=== PATIENT | male | born 1930 | race Caucasian/White ===

== ENCOUNTER 2019-07-24 11:19 | Emergency (ER) | payer OTHER, MEDICARE ==
[~2019-07-24] VITALS: Ht 177.8 cm; Wt 108.9 kg
[~2019-07-24 11:19] MED LIST: ACET500; AMIO200 PO; Adult Low Dose81 MG PO; CARV6.25 PO; CIPR500 PO; CLOP75; Carvedilol12.5 MG PO; Coreg6.25 MG PO; Coumadin4 MG PO; Depo-Testo100 MG/1 M IM; FIBE4P PO; Flonase 0.05% N16 GM; IBUP800; LAVAP17G PO; LEVSOD100; LEVSOD100 PO; LEVSOD125 PO; LIDO5TP TOP; LORA10; LORA10 PO; LOSA50 PO; METO50; Milk Of Ma800 MG/5 M PO; NAPR250 PO; NITR.4SL MM; Non-Aspirin Ex500 MG PO; OMEP20ER; OMEP20ER PO; OXYACE5T PO; PIRO20; PROBIOTIC1 EAC1 PO; PSYL5.85P PO; SIMV40; SULTRIDS PO; TELM80; TERA5; TESTOSTERONE; TRIHYD253A; Terazosin HCl10 MG PO; WARF5; WARF5 PO; metronidazole 500 mg PO
[2019-07-24] MEDS ORDERED: Percocet 5-3251 EACH PO (14:11)
[2019-07-24] MEDS ORDERED: CYCL10 PO (14:11)
== END 2019-07-24 14:54 | disposition home or self-care (01) ==
LOC: ER 11:19
DX: S32.019A Unspecified fracture of first lumbar vertebra, initial encounter for closed fracture (principal); Z79.899 Other long term (current) drug therapy; I10 Essential (primary) hypertension; Z95.0 Presence of cardiac pacemaker; Z79.01 Long term (current) use of anticoagulants; V89.2XXA Person injured in unspecified motor-vehicle accident, traffic, initial encounter
CPT/HCPCS: 70450; 72125; 72128; 72131; 96372; 99284-25; A9270-GY; J1885

== ENCOUNTER → 2019-08-03 | Outpatient (CLI) | payer MEDICARE, OTHER ==
[~2019-08-03] MED LIST changes: +CYCL10 PO; +Percocet 5-3251 EACH PO
[2019-08-03 19:09] LABS: Bilirubin, Urine Neg (Neg); Blood, Urine Neg (Neg); Glucose Qualitative, Urine Neg (Neg); Ketones, Urine Neg (Neg); Leukocyte Esterase, Urine 1+ (Neg); Nitrite, Urine Pos (Neg); Protein, Urine Neg (Neg); Urobilinogen, Urine NORM (Normal)
[2019-08-03 19:19] LABS: Appearance, Urine Clear (Clear); Bacteria Many /hpf; Color, Urine Yellow (P-Yellow); Red Blood Cells, Urine 0-2 /hpf (0-2); Squamous Epithelial Cells Not Seen /hpf (Few)
== END ==
LOC: LAB SHORT 17:17 → LAB 17:17
PROVIDERS: Registered Nurse
DX: R35.0 Frequency of micturition (principal); R31.9 Hematuria, unspecified
CPT/HCPCS: 81001; 87077; 87086; 87186

== ENCOUNTER → 2019-08-16 | Outpatient (CLI) | payer MEDICARE, OTHER ==
[2019-08-16 16:50] LABS: Source, Urine Clean Catch
[2019-08-16 17:22] LABS: Bilirubin, Urine Neg (Neg); Blood, Urine 1+ (Neg); Glucose Qualitative, Urine Neg (Neg); Ketones, Urine Neg (Neg); Leukocyte Esterase, Urine 3+ (Neg); Nitrite, Urine Pos (Neg); Protein, Urine Neg (Neg); Specific Gravity, Urine 1.015 (1.003-1.022); Urobilinogen, Urine NORM (Normal)
[2019-08-16 17:28] LABS: Appearance, Urine Hazy (Clear); Color, Urine Yellow (P-Yellow)
[2019-08-16 17:29] LABS: Bacteria Many /hpf; Squamous Epithelial Cells Few /hpf (Few); White Blood Cells, Urine TNTC /hpf (0-5)
== END | disposition home or self-care (01) ==
LOC: LAB SHORT 16:49 → OLS 16:49 → LAB FUT 08-10 16:30
PROVIDERS: Urology
DX: N39.0 Urinary tract infection, site not specified (principal)
CPT/HCPCS: 81001; 87077; 87086; 87186

== ENCOUNTER → 2020-09-01 | Outpatient (CLI) | payer MEDICARE, OTHER ==
[~2020-09-01] MED LIST changes: +ALLOPURINOL100 M1 PO; +ATOR10 PO; +Acetaminophen650 M1 PO; +DEPO-TESTO200 MG/1 M IM; -Depo-Testo100 MG/1 M IM; +EUTHYROX175 MCG PO; +HYDR1TAB94 PO; -LEVSOD100 PO; +LIDO700A20 TOP; +Magnesium250 MG PO; +POTASSIUM GLUCO99 M1 PO; +WARF2.5 PO
[2020-09-01 16:45] LABS: Source, Urine Clean Catch
[2020-09-01 18:46] LABS: Appearance, Urine Hazy (Clear); Bilirubin, Urine Neg (Neg); Blood, Urine Neg (Neg); Color, Urine Yellow (P-Yellow); Glucose Qualitative, Urine Neg (Neg); Ketones, Urine Neg (Neg); Leukocyte Esterase, Urine 2+ (Neg); Nitrite, Urine Pos (Neg); Protein, Urine Neg (Neg); Specific Gravity, Urine 1.015 (1.003-1.022); Urobilinogen, Urine NORM (Normal)
[2020-09-01 18:58] LABS: Red Blood Cells, Urine Not Seen /hpf (0-2)
[2020-09-01 18:59] LABS: Bacteria Many /hpf; Mucus Light (0-Heavy); Squamous Epithelial Cells Not Seen /hpf (Few)
== END | disposition home or self-care (01) ==
LOC: LAB 16:44 → LAB SHORT 16:44 → LAB FUT 08-14 08:40
PROVIDERS: Registered Nurse
DX: E79.0 Hyperuricemia without signs of inflammatory arthritis and tophaceous disease (principal)
CPT/HCPCS: 81001; 87077; 87086; 87186

== ENCOUNTER 2021-02-20 10:33 | Inpatient (IN) | payer OTHER, MEDICARE ==
[~2021-02-20] VITALS: Ht 177.8 cm; Wt 105.0 kg
[~2021-02-20 10:33] MED LIST changes: -ALLOPURINOL100 M1 PO; -ATOR10 PO; -Acetaminophen650 M1 PO; -Carvedilol12.5 MG PO; -DEPO-TESTO200 MG/1 M IM; -EUTHYROX175 MCG PO; -HYDR1TAB94 PO; -LIDO700A20 TOP; -Magnesium250 MG PO; -OMEP20ER PO; -POTASSIUM GLUCO99 M1 PO; -Terazosin HCl10 MG PO; -WARF2.5 PO
[2021-02-20 12:07] LABS: BASOPHILS ABSOLUTE AUTO 0.03 K/mm3 (0.00-0.23); BASOPHILS PERCENT AUTO 1 % (0-2); EOSINOPHILS ABSOLUTE AUTO 0.04 K/mm3 (0.00-0.68); EOSINOPHILS PERCENT AUTO 1 % (0-6); Hematocrit 46.6 % (37.0-53.0); Hemoglobin 15.4 g/dL (13.5-17.5); IMMATURE GRAN ABSOLUTE AUTO 0.02 K/mm3 (0.00-0.10); IMMATURE GRAN PERCENT AUTO 0 % (0-1); LYMPHOCYTES ABSOLUTE AUTO 1.62 K/mm3 (0.84-5.20); LYMPHOCYTES PERCENT AUTO 27 % (21-46); MONOCYTES ABSOLUTE AUTO 0.59 K/mm3 (0.16-1.47); MONOCYTES PERCENT AUTO 10 % (4-13); Mean Corpuscular HGB 31.7 pg (26.0-34.0); Mean Corpuscular Volume 96 fL (80-100); NEUTROPHILS ABSOLUTE AUTO 3.72 K/mm3 (1.96-9.15); NEUTROPHILS PERCENT AUTO 62 % (41-73); Platelet Count 143 K/mm3 (150-400); RDW Coefficient Variation 16.2 % (11.7-14.2); RDW Standard Deviation 58.2 fL (35.1-46.3); Red Blood Cell Count 4.86 M/mm3 (4.30-5.90); White Blood Cell Count 6.02 K/mm3 (4.00-11.30)
[2021-02-20 12:14] LABS: International Normalized Ratio 2.12; Prothrombin Time Results 21.9 Sec (9.7-11.5)
[2021-02-20 12:19] LABS: Alanine Aminotransfer (ALT/SGP 43 U/L (12-78); Albumin, Blood 3.4 g/dL (3.4-5.0); Albumin/Globulin Ratio 0.9 (0.8-1.8); Alk Phos 96 U/L (50-136); Anion Gap 6 mmol/L (6-16); Aspartate Aminotrans (AST/SGOT 42 U/L (12-37); Bilirubin, Total 1.6 mg/dL (0.1-1.0); Blood Urea Nitrogen 24 mg/dL (8-24); Bun/Creatinine Ratio 22.2 (12.0-20.0); CO2, Blood 25 mmol/L (21-32); Calcium, Blood 8.8 mg/dL (8.5-10.1); Chloride, Blood 108 mmol/L (98-108); Creatinine, Blood 1.08 mg/dL (0.60-1.20); Globulin, Blood 3.6 g/dL (2.2-4.0); Glomerular Filtration Rate >60 (60-); Glucose, Blood 93 mg/dL (70-99); Potassium, Blood 4.4 mmol/L (3.5-5.5); Sodium, Blood 139 mmol/L (136-145); Troponin I <0.015 ng/mL (0.000-0.040)
[2021-02-20] MEDS ORDERED: ALLOPURINOL100 M1 PO (12:25)
[2021-02-20] MEDS ORDERED: Carvedilol12.5 MG PO (12:25)
[2021-02-20] MEDS ORDERED: Terazosin HCl10 MG PO (12:26)
[2021-02-20] MEDS ORDERED: ATOR10 PO (12:26)
[2021-02-20] MEDS ORDERED: OMEP20ER PO (12:27)
[2021-02-20] MEDS ORDERED: EUTHYROX175 MCG PO (12:28)
[2021-02-20] MEDS ORDERED: DEPO-TESTO200 MG/1 M IM (12:28)
[2021-02-20] MEDS ORDERED: WARF5 PO (13:10)
[2021-02-20] MEDS ORDERED: WARF2.5 PO (13:11)
[2021-02-20] MEDS ORDERED: LIDO700A20 TOP (13:13)
[2021-02-20] MEDS ORDERED: Flonase 0.05% N16 GM (13:13)
[2021-02-20] MEDS ORDERED: POTASSIUM GLUCO99 M1 PO (13:14)
[2021-02-20] MEDS ORDERED: Magnesium250 MG PO (13:15)
--- NOTE | 2021-02-20 16:39 | NUR ---
PATIENT OFF THE CATHLAB TABLE AND TO A STRETCHER. HELD IN HEART CENTER RECOVERY UNTIL ICU BED READY. PLACED ON THE MONITOR. PACED RHYTHM NOTED. CALL LIGHT IN REACHSR Kline 2, RN AT THE BEDSIDE. LONG DESTINATION SHEATH IN PLACE TO THE LFA. PENDING ORDER FOR TPA GTT TO THE SHEATH PORT. AWAITING PHARMACY TO PREPARE. NO PAIN NOTED FROM THE PATIENT. UNABLE TO OBTAIN DOPPLER PULSE TO THE RIGHT FOOT. TOES ARE WHITE BUT JUST BELOW THE TOES THE SKIN BECOMES PURPLE/RED AND BLANCHES.
--- NOTE | 2021-02-20 19:22 | NUR ---
PT ADMIT TO ICU AT 1710. TRANSFERRED WITH SLIDE SHEET. RIGHT LOWER EXTREMITY REVASC. LEFT GROIN SIGHT WITH SHEATH IN PLACE. NO SIGNS OF BLEEDING OR HEMATOMA. SIGHT REMAINS SOFT AND NON TENDER. TPA INFUSING AT SHEATH/LEFT GROIN SITE. PATIENT LAYING FLAT AND EDUCATED ON POST REVASC RESTRICTIONS. TPA TO INFUSE OVER 15 HOURS. SEE ORDERS. HEPARIN INFUSING. RIGHT LOWER EXTREMITY PINK IN COLOR AND WARM TO TOUCH. PATIENT STATES NUMBNESS IS DECREASING. RIGHT PEDAL PULSE ABSENT, HEART CENTER NURSE AND DR. MCNULTY AWARE. LEFT PEDAL PULSE FAINT. BOWEL TONES HEARD. LUNGS SOUNDING CLEAR. PT STATES URINARY RETENTION AND THAT HE SELF CATHS HIMSELF EVERY NIGHT. ORDERS FOR AGARWAL PLACED. WEARS CPAP AT NIGHT. CALL LIGHT IN REACH. REPORTED OFF TO ONCOMING RN.
[2021-02-21 04:08] LABS: Hematocrit 43.1 % (37.0-53.0); Hemoglobin 14.3 g/dL (13.5-17.5); Mean Corpuscular HGB 31.8 pg (26.0-34.0); Mean Corpuscular HGB Conc 33.2 g/dL (31.5-36.5); Mean Corpuscular Volume 96 fL (80-100); Mean Platelet Volume 10.8 fL (9.1-12.4); Platelet Count 110 K/mm3 (150-400); RDW Coefficient Variation 16.4 % (11.7-14.2); RDW Standard Deviation 58.3 fL (35.1-46.3); Red Blood Cell Count 4.49 M/mm3 (4.30-5.90)
[2021-02-21 04:20] LABS: International Normalized Ratio 2.02
[2021-02-21 04:29] LABS: Anion Gap 6 mmol/L (6-16); Blood Urea Nitrogen 22 mg/dL (8-24); Bun/Creatinine Ratio 22.8 (12.0-20.0); CO2, Blood 25 mmol/L (21-32); Calcium, Blood 8.2 mg/dL (8.5-10.1); Chloride, Blood 109 mmol/L (98-108); Creatinine, Blood 0.96 mg/dL (0.60-1.20); Glomerular Filtration Rate >60 (60-); Glucose, Blood 79 mg/dL (70-99); Potassium, Blood 4.1 mmol/L (3.5-5.5); Sodium, Blood 140 mmol/L (136-145)
--- NOTE | 2021-02-21 06:37 | NUR ---
END OF SHIFT SUMMMARY: PATIENT A/O X4 AND IS VERY PLEASANT TO TAKE CARE OF. L FEM SITE HAS LOOKED GREAT ALL NIGHT: NO EVIDENVE OF BLEEDING/HEMATOMA/OR MAJOR DISCOMFORT. PATIENT ONLY C/O PAIN IN R LEG AND HIS CHRONIC BACK PAIN FROM LAYING FLAT FOR SO LONG. HEAT APPLIED TO LUMBAR REGION AND FENTANYL GIVEN MULTIPLE TIMES OVERNIGHT WHEN PATIENT REQUESTS. ORDERS TO LAY FLAT UNTIL ABOUT 0820 AND THEN MCGLADE TO RE-EVALUATE TODAY.
--- NOTE | 2021-02-21 08:23 | NUR ---
CALL TO DR MCNULTY REGARDING ORDERS FOR PT. INSTRUCTS TO STOP TPA AND HEPARIN AND WAIT 1 HOUR AND DC SHEATH. FLEET MAINTENANCE FOREMAN CALLED HEART CENTER STAFF TO REMOVE SHEATH IN 1 HOUR. ORDERS ORAL ANTICOAGULANTS AND STATES FROM HIS STAND POINT, OK TO DC AND TO BE SEEN IN OFFICE ON TUESDAY. FLEET MAINTENANCE FOREMAN AWARE, AWAITING HOSPITALIST
--- NOTE | 2021-02-21 09:25 | NUR ---
HEART CENTER TECH AT BEDSIDE TO REMOVE SHEATH AT THIS TIME.
--- NOTE | 2021-02-21 12:35 | NUR ---
DR DURON CAME TO SEE PT AND STATES SHE WILL BE WRITING DC ORDERS. PT INSTRUCTED THAT HE IS NOT ABLE TO DRIVE HIMSELF HOME BECAUSE HE IS NOT 24 HOURS OUT FROM THE PROCEDURE. PT CURRENTLY SITTING UP IN BED AND WILL GET HIM OUT OF BED AND SITTING IN A CHAIR SHORTLY
[2021-02-21] MEDS ORDERED: Acetaminophen650 M1 PO (13:46)
--- NOTE | 2021-02-21 13:55 | NUR ---
PT SITTING UP IN CHAIR WITH ASSISTANCE FROM [employer] ASSISTANT PRINCIPAL. ELEVATED RIGHT FOOT DUE TO INCREASED PURPLE COLOR TO TOES WITH IMPROVEMENT. PT ASKED IF HE COULD GO TO TOILET AND PHYSICAL THERAPIST ASSISTED WITH THIS. THERAPIST AT BEDSIDE AT THIS TIME.
--- NOTE | 2021-02-21 14:47 | NUR ---
DISCHARGE: PT'S IVS DC'D WNL. SLIGHT BRUISING NOTED TO LEFT GROIN BUT DID NOT GROW OR SWELL WITH ACTIVITY. INSTRUCTED PT TO WATCH FOR INCREASED BLEEDING AND SWELLING, ESPECIALLY IF HE NOTICES DIZZINESS OR LIGHTHEADEDNESS. INSTRUCTED PT TO HOLD PRESSURE AND CALL 911 IF INCREASED BLEEDING OR SWELLING NOTED. INSTRUCTED PT TO CALL 'S OFFICES TUESDAY FOR FOLLOW UP APPOINTMENTS. ESCORTED OUT VIA WHEEL CHAIR BY HOSPITAL STAFF.
== END 2021-02-21 14:30 | disposition home or self-care (01) | DRG 271 ==
LOC: ER 10:33 → ERHOLD 10:34 → ICUW 10:34 → ERHOLD 10:34 → ICUW 16:51
PROVIDERS: Emergency Medicine; Physician Assistant; ADMIT Internal Medicine
PROC: 047K3ZZ Dilation of Right Femoral Artery, Percutaneous Approach (ICD-10-PCS; principal; 2021-02-20)
PROC: 04CK3ZZ Extirpation of Matter from Right Femoral Artery, Percutaneous Approach (ICD-10-PCS; 2021-02-20)
PROC: 047P3Z1 Dilation of Right Anterior Tibial Artery using Drug-Coated Balloon, Percutaneous Approach (ICD-10-PCS; 2021-02-20)
PROC: 04CP3ZZ Extirpation of Matter from Right Anterior Tibial Artery, Percutaneous Approach (ICD-10-PCS; 2021-02-20)
PROC: 04CM3ZZ Extirpation of Matter from Right Popliteal Artery, Percutaneous Approach (ICD-10-PCS; 2021-02-20)
PROC: HZ2ZZZZ Detoxification Services for Substance Abuse Treatment (ICD-10-PCS; 2021-02-20)
PROC: 3E05317 Introduction of Other Thrombolytic into Peripheral Artery, Percutaneous Approach (ICD-10-PCS; 2021-02-20)
DX: I70.221 Atherosclerosis of native arteries of extremities with rest pain, right leg (principal); I48.20 Chronic atrial fibrillation, unspecified; Z66 Do not resuscitate; I25.10 Atherosclerotic heart disease of native coronary artery without angina pectoris; E78.5 Hyperlipidemia, unspecified; E03.9 Hypothyroidism, unspecified; G47.33 Obstructive sleep apnea (adult) (pediatric); I10 Essential (primary) hypertension; E66.9 Obesity, unspecified; K22.70 Barrett's esophagus without dysplasia; K21.9 Gastro-esophageal reflux disease without esophagitis; M10.9 Gout, unspecified; M54.5 Low back pain; G89.29 Other chronic pain; F10.10 Alcohol abuse, uncomplicated; N40.0 Benign prostatic hyperplasia without lower urinary tract symptoms; Z96.643 Presence of artificial hip joint, bilateral; Z79.01 Long term (current) use of anticoagulants; Z95.0 Presence of cardiac pacemaker; Z68.33 Body mass index [BMI] 33.0-33.9, adult; Z99.89 Dependence on other enabling machines and devices; Z90.49 Acquired absence of other specified parts of digestive tract; Z98.890 Other specified postprocedural states; Z87.891 Personal history of nicotine dependence; Z95.5 Presence of coronary angioplasty implant and graft; Z79.899 Other long term (current) drug therapy
CPT/HCPCS: 36415; 37184; 37185; 37211; 37224; 37228; 75625; 75716; 75774; 76937; 80048; 80053; 84484; 85025; 85027; 85347; 85384; 85610; 85730; 93005; 93010; 94660; 97116; 97161; 99152; 99153; 99285-25; A9270; C1725; C1757; C1769; C1887; C1894; J1644; J2250; J2405; J2997; J3010; J3411; J7030; J7040; J7050; Q9967

== ENCOUNTER 2021-02-24 10:40 | Day surgery (SDC) | payer MEDICARE, OTHER ==
[~2021-02-24] VITALS: Ht 177.8 cm; Wt 105.5 kg
[~2021-02-24 10:40] MED LIST changes: +ALLOPURINOL100 M1 PO; +ATOR10 PO; +Acetaminophen650 M1 PO; +Carvedilol12.5 MG PO; +DEPO-TESTO200 MG/1 M IM; +EUTHYROX175 MCG PO; +LIDO700A20 TOP; +Magnesium250 MG PO; +OMEP20ER PO; +POTASSIUM GLUCO99 M1 PO; +Terazosin HCl10 MG PO; +WARF2.5 PO
--- NOTE | 2021-02-24 11:11 | NUR ---
PATIENT WHEELCHAIRED BACK TO BEDSIDE. REQUESTING AN EGG CRATE MATTRESS BE PLACED ON [facility] BED.
[2021-02-24 12:05] LABS: International Normalized Ratio 2.02
--- NOTE | 2021-02-24 14:11 | NUR ---
DR. MCNULTY AT THE BEDSIDE AND SPOKE WITH THE PATIENT. PATIENT THEN TO THE CATHLAB FOR PROCEDURE.
--- NOTE | 2021-02-24 14:15 | NUR ---
PATIENT REPOSITIONED UP IN THE BED WITH THREE PERSONS ASSIST.
--- NOTE | 2021-02-24 15:46 | NUR ---
PATIENT RETURNED FROM THE CATHLAB WITH SHEATH TO THE LEFT FEMORAL ARTERY IN PLACE. NOTIFIED PHARMACY OF NEW ORDERS FOR TPA AND HEPARIN GTT TO THE SHEATH. AWAITING ON ICU BED ASSIGNMENT. PATIENT AAOX3, MONITOR APPLIED IN THE RECOVERY ROOM AND SBAR RECEIVED FROM AMBER FLORES. HOLDING PATIENT UNITL ICU BED ASSIGNMENT.
--- NOTE | 2021-02-24 16:58 | NUR ---
1635 TPA GTT STARTED TO THE SIDE PORT OF THE SHEATH. GTT INFUSING VIA PUMP AT 25 ML/HR = 1 MG/HR ORDERED. 1635 HEPARIN GTT STARTED TO THE PIV VIA PUMP INFUSION AT 500 UNITS/HR = 4.96 ML/HR ORDERED.
--- NOTE | 2021-02-24 17:00 | NUR ---
PATIENT C/O BACK PAIN, TYLENOL GIVEN PO ORDERED.
--- NOTE | 2021-02-24 17:46 | NUR ---
ORDER OBTAINED FOR FENTANYL IV AND DOSE GIVEN AT 1744. APPLIED O2 BNC @ 2LPM AFTER FENTANYL DOSE GIVEN AND DECREASED O2 SAT NOTED.
--- NOTE | 2021-02-24 18:13 | NUR ---
TRABSFERED PATIENT TO ICU #1 FOR INPATIENT STAY, SBAR GIVEN TO RN AT THE BEDSIDE.
--- NOTE | 2021-02-24 19:00 | NUR ---
ASSUMED CARE NOTE: ASSUMED CARE OF PT AT 1900, OBTAINED REPORT FROM ANGELO CLARK. PT IS ALERT AND ORIENTED X4, ABLE TO COMMUNICATE NEEDS. PT REPORTS PAIN 8/10 TO HIS RLE, AND 7/10 TO HIS BACK PT RECEVING PAIN MEDS PER ORDER. PT IS ON 2L OF O2 VIA NC, SPO2 ABOVE 90% NO RESP DISTRESS NOTED. PT IN AFIB, OCCASIONAL V PACER SPIKES. HR BETWEEN 60-80. LEFT GRION CATH SHEATH INSERTION SITE IS FREE FROM ACTIVE BLEEDING, SMALL HEMATOMA CAN BE FELT TO THE LEFT SIDE OF INSERTION SITE. ECCHYMOSIS TO LEFT INNER THIGH FROM PREVIOUS PROCEDURE. TPA INFUSING VIA LEFT GRION SHEATH. PEDAL PULSE TO RLE IS ABSENT, POSTERIOR TIBIAL PULSE CAN BE HEARD VIA DOPPLER. RLE IS COOL TO THE TOUCH AND SLIGHTLY MOTTLED, CAP REFILL IS GREATER THAN 3 SEC. LLE IS WARM TO THE TOUCH, PINK, AND FAINT PULSES CAN BE FELT. PILLOW PLACED ON R HIP, BILAT LEGS TO REMAIN STRAIGHT. CALL LIGHT WITHIN REACH.
--- NOTE | 2021-02-24 20:12 | NUR ---
UPDATE: SPOKE TO REGARDING MEDICATION ORDERS. WILL HOLD BP MEDS , CURRENT BP 92/48, MAP OF 65. HR IN THE 80'S. PT GIVEN ONLY 50MCG OF FENTANYL, PHYSICAN MADE AWARE. FENTYNAL ORDER CAN BE CHANGED TO 50-100 MCG EVERY HOUR PER . ORDERS GIVEN FOR CPAP PROTOCOL.
--- NOTE | 2021-02-25 06:48 | NUR ---
SHIFT SUMMARY: PT CONTINUES TO BE ALERT AND ORIENTEDX4, ABLE TO COMMUNICATE NEEDS. PT HAS BEEN ON 2L OF O2 VIA NC, DUE TO SpO2 DROPPING TO 86% WHILE SLEEPING. PT HAS A CPAP IN THE ROOM, HE REFUSED TO USE CPAP ALL NIGHT. PT HAS BEEN IN AFIB WITH HR IN THE 80'S, BP STABLE. RLE COOL TO THE TOUCH, NO PEDAL PULSE, DOPPLER PLUSE IN POPLITEAL, AND POSTERIOR TIBIAL. LEFT GRION ACCESS SITE NO CHANGES. DRESSING CONTINUES TO BE C/D/I. PT C/O ON NUMBNESS TO RLE, 8/10 PAIN, PAIN MEDS GIVEN EVERY HOUR PER EMAR WITH LITTLE TO NO EFFECT. PT HAS BEEN REFUSING TO HAVE HIPS FLOATED STS " IT IS MORE UNCOMFORTABLE" WILL SHIFT SELF OFF THE PILLOW. PT HAS BEEN USING URINAL AT BEDSIDE. REPORT GIVEN TO RAGHAV CLARK.
--- NOTE | 2021-02-25 07:30 | NUR ---
Received report from Noc RN. Patient is supine in bed and is awake alert and oriented and is able to communicate his needs. He is very particular and wants everything explained to him. He is on 2L O2 via NC and sats ?90% as he dozes off and desats slightly and refuses to where CPAP. He has sheath in place to left groin and has TPA infusing 1 mg/hr. He has 20ga IV to LAC and is infusing Heparin at 4.76 units/kg/hr. He also has 20ga IV to RFA flushed and SL'd. Patient has LE pulses X4 by doppler. Called [facility] for patient and they will be coming shortly for procedure.
--- NOTE | 2021-02-25 09:30 | NUR ---
Patient remains gone at hemodialysis lab technician.
--- NOTE | 2021-02-25 11:13 | NUR ---
Patient returned from cardiac cath lab technologist at 1045 and he was medicated for pain per OCT. Rolled patient with assist and place lidocaine patches to lower back. He fell asleep quickly and placed 2 L O2 via NC as he desats when sleeping and refuses to wear CPAP. Left groin site C/D/I and has clear op site dressing, area is soft and palpable , no oozing or hematoma. AM meds given PO tolerated with water. Doppler pulses to LE's.
--- NOTE | 2021-02-25 13:30 | NUR ---
Called Dr Swan and we started Xarellto 15mg now, Heart healthy diet. I will be getting him up out of bed soon. Heparin off. Plan for the day is to send home. Left groin site stable. VSS, See EMR.
--- NOTE | 2021-02-25 16:11 | NUR ---
Patient being discharged home, tried to review discharge instructions to patient and he refused and stated "lets get going". Pulled IV's intact and wrapped in gauze and coban. very rude and demanding. he was taken out fron to sidewalk as requested and wanted me to just leave him there. I asked again to review meds and he denied again. Will go out and check on him in ten minutes.
== END 2021-02-25 16:05 | disposition home or self-care (01) ==
LOC: MHTC 10:40 → ICUE 18:20 → MHTC 02-25 16:05
PROVIDERS: Radiology Diagnostic Radiology
DX: I70.223 Atherosclerosis of native arteries of extremities with rest pain, bilateral legs (principal); I48.20 Chronic atrial fibrillation, unspecified; I25.10 Atherosclerotic heart disease of native coronary artery without angina pectoris; I25.2 Old myocardial infarction; I10 Essential (primary) hypertension; E78.5 Hyperlipidemia, unspecified; E03.9 Hypothyroidism, unspecified; N40.0 Benign prostatic hyperplasia without lower urinary tract symptoms; K21.9 Gastro-esophageal reflux disease without esophagitis; Z95.0 Presence of cardiac pacemaker; Z95.5 Presence of coronary angioplasty implant and graft; Z96.643 Presence of artificial hip joint, bilateral; Z87.891 Personal history of nicotine dependence; Z79.01 Long term (current) use of anticoagulants
CPT/HCPCS: 36415; 37184; 37185; 37211; 37214; 37224; 37226; 37228; 37232; 75710; 75716; 75774; 76937; 85018; 85347; 85384; 85610; 94660; 99152; 99153; A9270; C1725; C1753; C1757; C1760; C1769; C1874; C1887; C1894; J1644; J2250; J2997; J3010; J7030; J7040; J7050; Q9967

== ENCOUNTER 2021-02-27 10:13 | Emergency (ER) | payer MEDICARE, OTHER ==
[~2021-02-27] VITALS: Ht 177.8 cm; Wt 105.2 kg
[2021-02-27 11:17] LABS: BASOPHILS ABSOLUTE AUTO 0.02 K/mm3 (0.00-0.23); BASOPHILS PERCENT AUTO 0 % (0-2); EOSINOPHILS ABSOLUTE AUTO 0.09 K/mm3 (0.00-0.68); EOSINOPHILS PERCENT AUTO 2 % (0-6); Hematocrit 32.4 % (37.0-53.0); Hemoglobin 10.5 g/dL (13.5-17.5); IMMATURE GRAN ABSOLUTE AUTO 0.02 K/mm3 (0.00-0.10); IMMATURE GRAN PERCENT AUTO 0 % (0-1); LYMPHOCYTES PERCENT AUTO 24 % (21-46); MONOCYTES ABSOLUTE AUTO 0.63 K/mm3 (0.16-1.47); MONOCYTES PERCENT AUTO 11 % (4-13); Mean Corpuscular HGB 32.7 pg (26.0-34.0); Mean Corpuscular HGB Conc 32.4 g/dL (31.5-36.5); Mean Corpuscular Volume 101 fL (80-100); Mean Platelet Volume 11.1 fL (9.1-12.4); NEUTROPHILS ABSOLUTE AUTO 3.81 K/mm3 (1.96-9.15); NEUTROPHILS PERCENT AUTO 64 % (41-73); Platelet Count 119 K/mm3 (150-400); RDW Coefficient Variation 16.9 % (11.7-14.2); RDW Standard Deviation 62.5 fL (35.1-46.3); Red Blood Cell Count 3.21 M/mm3 (4.30-5.90); White Blood Cell Count 5.97 K/mm3 (4.00-11.30)
[2021-02-27 11:28] LABS: Albumin/Globulin Ratio 0.9 (0.8-1.8); Bilirubin, Total 1.8 mg/dL (0.1-1.0); Bun/Creatinine Ratio 18.8 (12.0-20.0); Calcium, Blood 8.3 mg/dL (8.5-10.1); Creatinine, Blood 1.17 mg/dL (0.60-1.20); Globulin, Blood 3.3 g/dL (2.2-4.0); Potassium, Blood 3.4 mmol/L (3.5-5.5); Total Protein, Blood 6.3 g/dL (6.4-8.2)
[2021-02-27] MEDS ORDERED: HYDR1TAB94 PO (15:47)
[2021-03-03 10:10] LABS: 1 HR INCUB PT 1:1NP 11.7 sec (9.1-12.0); PT 17.8 sec (9.1-12.0); PT 1:1NP 11.7 sec (9.1-12.0)
== END 2021-02-27 16:04 | disposition home or self-care (01) ==
LOC: ER 10:13
PROVIDERS: Family Medicine; Physician Assistant
DX: S30.1XXA Contusion of abdominal wall, initial encounter (principal); R20.0 Anesthesia of skin; M79.604 Pain in right leg; I10 Essential (primary) hypertension; Z98.890 Other specified postprocedural states; X58.XXXA Exposure to other specified factors, initial encounter
CPT/HCPCS: 36415; 80053; 85025; 85610; 85611; 93005; 93010; 99283-25; A9270